=== PATIENT | female | born 1955 | race Caucasian/White ===

== ENCOUNTER 2022-05-01 19:57 | Inpatient (IN) | payer BC ==
[~2022-05-01] VITALS: Ht 162.6 cm; Wt 50.8 kg
--- NOTE | 2022-05-01 20:26 | NUR ---
No beds available in the ER. [facility].
[2022-05-01 20:31] LABS: HEMATOCRIT 38.6 % (31.2-41.9); MEAN CORPUSCULAR HEMOGLOBIN 28.7 uug (24.7-32.8); PLATELET COUNT (AUTO) 221 K/uL (179-408)
--- NOTE | 2022-05-01 20:37 | NUR ---
Patient out of unit for x ray.
[2022-05-01] MEDS ORDERED: METO50TA16 PO (20:40)
[2022-05-01] MEDS ORDERED: EZET10TA15 PO (20:40)
[2022-05-01] MEDS ORDERED: ROSU5TAB PO (20:40)
[2022-05-01 20:44] LABS: CARBON DIOXIDE 26 mmol/L (21-32); CHLORIDE 103 mmol/L (98-107); CREATININE 0.7 mg/dL (0.6-1.3); GLUCOSE 139 mg/dL (74-106); POTASSIUM 3.7 mmol/L (3.5-5.1); UREA NITROGEN, BLOOD 14 mg/dL (7-18)
[2022-05-01 20:53] LABS: ALANINE AMINOTRANSFERASE 44 U/L (14-59); ALKALINE PHOSPHATASE 68 U/L (50-136); ASPARTATE AMINOTRANSFERASE 29 U/L (15-37); BILIRUBIN,DIRECT 0.1 mg/dL (0.0-0.2); BILIRUBIN,TOTAL 0.4 mg/dL (0.2-1.0); TOTAL PROTEIN, SERUM 7.5 g/dL (6.4-8.2)
[2022-05-01] MEDS ORDERED: MORPHINE SULFATE 4 MG/1 ML DISP.SYRIN ONE (21:57)
[2022-05-01] MEDS ORDERED: MORPHINE SULFATE 4 MG/1 ML DISP.SYRIN IV ONE (22:00)
--- NOTE | 2022-05-01 22:10 | NUR ---
Paged Dr Valdovinos for ortho consult. Waiting for call back.
--- NOTE | 2022-05-02 00:52 | NUR ---
[facility] called for panel call. Dr. Yap credit relationship manager .
[2022-05-02] MEDS ORDERED: MORPHINE SULFATE 4 MG/1 ML DISP.SYRIN ONE (00:56)
[2022-05-02] MEDS ORDERED: MORPHINE SULFATE 4 MG/1 ML DISP.SYRIN IV ONE (01:00)
[2022-05-02] MEDS ORDERED: ONDANSETRON 4 MG/2 ML VIAL IV PRN (01:00)
[2022-05-02] MEDS ORDERED: KETAMINE HCL 500 MG/10 ML INJ IV ONE (01:00)
[2022-05-02] MEDS ORDERED: hydrALAZINE HCL 20 MG/1 ML VIAL IV PRN (01:00)
[2022-05-02] MEDS ORDERED: PROPOFOL 1,000 MG/100 ML BOTTLE IV ONE (01:15)
[2022-05-02] MEDS ORDERED: PROPOFOL 200 MG/20 ML BOTTLE ONE (01:29)
--- NOTE | 2022-05-02 01:30 | NUR ---
DR DO SPOKE WITH DR HODGE FOR CONSULT.
--- NOTE | 2022-05-02 02:39 | NUR ---
PATIENT AWAKE, A/OX3 WITH NO DISTRESS NOTED.
[2022-05-02] MEDS ORDERED: KETOROLAC TROMETHAMINE 30 MG INJ IVP ONE (03:00)
[2022-05-02] MEDS ORDERED: KETOROLAC TROMETHAMINE 30 MG INJ ONE (03:51)
--- NOTE | 2022-05-02 04:00 | NUR ---
Report given to Alix JOHNSON.
[2022-05-02 04:15] VITALS: BP 120/61
--- NOTE | 2022-05-02 04:25 | NUR ---
Pt. admitted to Med Surg rm 321, under care of Dr. Soria. Belongs List completed Alix JOHNSON aware of patient's arrival to unit.
[2022-05-02] MEDS: MORPHINE SULFATE 2 MG/1 ML DISP.SYRIN IV PRN ×2 (06:08→11:39)
--- NOTE | 2022-05-02 08:17 | NUR ---
SHIFT NOTE; RECEIVED REPORT FROM FLAVIO IN THE ER. PT WAS WALING ON SLIPPERY FLOOR AND LOST HER BALANCE GET UP HAS A RT HIP AND FELL ON RT HIP PT UNABLE TO GET UP AFTER THE FALL HAS RT THIGH DEFORMITY PT DENIED HITTING HER HEAD AND NO SOB WAS NOTED. PAIN MEDICATION TORADOL AND MORPHINE GIVEN FOR PAIN. PT GIVEN 2MG OF MORPHINE AT 0610 AM FOR HIP PAIN. AND WAS ABLE TO COMPLETE THE ADMISSION AFTER BEING INTERRUPTED BY LAB. WILL ENDORSE TO NEXT SHIFT NURSE WILL CONTINUE TO MONITOR FOR SAFETY.
[2022-05-02] MEDS ORDERED: METOPROLOL TARTRATE 50 MG TABLET PO SCH (09:00)
[2022-05-02] MEDS ORDERED: Medication Not On Formulary EA (Rosuvastatin Calcium (Crestor) 5 MG) PO SCH (09:00)
[2022-05-02] MEDS: EZETIMIBE 10 MG TABLET PO SCH (09:14)
[2022-05-02] MEDS: METOPROLOL TARTRATE 50 MG TABLET PO SCH (09:55)
[2022-05-02 09:56] VITALS: BP 133/65
[2022-05-02 11:08] VITALS: BP 110/52
--- NOTE | 2022-05-02 12:00 | NUR ---
Pt is a/o x 4, complains of pain in the right hip. Plan is for pt to have IM nailing of right hip upon cardiac clearance. Consent signed and placed in chart. Will continue to monitor.
[2022-05-02] MEDS ORDERED: BUPIVACAINE PF 0.5% 30 ML VIAL ONE (13:04)
[2022-05-02] MEDS ORDERED: VANCOMYCIN 1000 MG VIAL ONE (13:04)
[2022-05-02] MEDS ORDERED: EPHEDRINE SULFATE 50 MG/ML AMPUL IM ONE (13:27)
[2022-05-02] MEDS ORDERED: LIDOCAINE-MPF 2% 5 ML VIAL IJ ONE (13:27)
[2022-05-02] MEDS ORDERED: CEFAZOLIN 1 G VIAL IM ONE (13:27)
[2022-05-02] MEDS ORDERED: ONDANSETRON 4 MG/2 ML VIAL IV ONE (13:27)
[2022-05-02] MEDS ORDERED: DEXAMETHASONE SOD PHOSPHATE 4 MG INJ IV ONE (13:27)
[2022-05-02] MEDS ORDERED: PROPOFOL 200 MG/20 ML BOTTLE IV ONE (13:27)
[2022-05-02] MEDS ORDERED: SEVOFLURANE 250 ML BOTTLE IH ONE (13:27)
[2022-05-02] MEDS ORDERED: KETOROLAC TROMETHAMINE 30 MG INJ IM ONE (13:27)
--- NOTE | 2022-05-02 14:00 | NUR ---
Pt is cleared for surgery, consent in chart, Iv intact and patent. Pt is getting IM nailing of right hip by Dr. Valdovinos for 1500, OR nurse took pt down at 1400. Pt is NPO status, refused schuler cath insertion at this time, preferred to get in inserted while under anesthesia. Notified OR nurse.
[2022-05-02] MEDS ORDERED: HYDROMORPHONE 2 MG/1 ML DISP.SYRIN ONE (14:32)
--- NOTE | 2022-05-02 17:08 | NUR ---
Pt returned from OR. Pt vitals 97.8 temp, BP 125/62, HR 69, 100% on 2L NC. Pt was given ancef 1st dose in OR, PRN morphine and norco per MD order, regular diet orered, will place on D5 1/2 NS +20meqs KCL when available on unit. No pain medications given by OR, mp complaint of pain at this time. Pt is awake alert and oriented x 4, at bedside. will continue to monitor.
[2022-05-02] MEDS ORDERED: POTASSIUM CHLORIDE 20 MEQ in IV D5 1/2 NS 1000 ML 1,000 ML IV PRN (18:00)
[2022-05-02 20:44] VITALS: BP 100/49
[2022-05-02] MEDS: ATORVASTATIN 10 MG TABLET PO SCH (21:05)
[2022-05-02] MEDS: CEFAZOLIN 1 G in IV DEXTROSE 5% 50 ML IV SCH (23:03)
[2022-05-03 04:45] VITALS: BP 101/52
[2022-05-03] MEDS: CEFAZOLIN 1 G in IV DEXTROSE 5% 50 ML IV SCH (05:54)
[2022-05-03 07:31] LABS: MEAN CORPUSCULAR HEMOGLOBIN 29.2 uug (24.7-32.8); MEAN CORPUSCULAR VOLUME 87.5 fL (75.5-95.3); PLATELET COUNT (AUTO) 202 K/uL (179-408)
[2022-05-03 07:42] LABS: BILIRUBIN,TOTAL 0.6 mg/dL (0.2-1.0); CREATININE 0.7 mg/dL (0.6-1.3); PHOSPHOROUS 2.9 mg/dL (2.5-4.9); POTASSIUM 4.5 mmol/L (3.5-5.1); TOTAL PROTEIN, SERUM 5.9 g/dL (6.4-8.2)
[2022-05-03] MEDS: EZETIMIBE 10 MG TABLET PO SCH (08:07)
[2022-05-03] MEDS: METOPROLOL TARTRATE 50 MG TABLET PO SCH (08:07)
[2022-05-03] MEDS ORDERED: HEPARIN SODIUM,PORCINE 5,000 UNITS/ML VIAL SQ SCH (09:00)
[2022-05-03] MEDS: MORPHINE SULFATE 4 MG/1 ML DISP.SYRIN IV PRN (09:05)
[2022-05-03 15:48] VITALS: BP 103/52
[2022-05-03 15:59] LABS: HEMATOCRIT 28.5 % (31.2-41.9)
[2022-05-03 20:00] VITALS: BP_SYST 130; BP_SYST 138; BP_DIAS 63; BP_DIAS 64
[2022-05-03] MEDS: ATORVASTATIN 10 MG TABLET PO SCH (20:26)
[2022-05-03] MEDS: ACETAMINOPHEN 325 MG TABLET PO PRN (21:25)
[2022-05-04 07:05] LABS: HEMATOCRIT 28.6 % (31.2-41.9); MEAN CORPUSCULAR HEMOGLOBIN 28.8 uug (24.7-32.8); MEAN CORPUSCULAR VOLUME 86.4 fL (75.5-95.3); PLATELET COUNT (AUTO) 165 K/uL (179-408)
[2022-05-04 07:26] LABS: CREATININE 0.6 mg/dL (0.6-1.3); MAGNESIUM 2.1 mg/dL (1.8-2.4); POTASSIUM 3.9 mmol/L (3.5-5.1)
[2022-05-04] MEDS: METOPROLOL TARTRATE 50 MG TABLET PO SCH (08:29)
[2022-05-04] MEDS: EZETIMIBE 10 MG TABLET PO SCH (08:29)
[2022-05-04] MEDS: MORPHINE SULFATE 4 MG/1 ML DISP.SYRIN IV PRN (08:50)
[2022-05-04] MEDS: ENOXAPARIN SODIUM 40 MG/0.4 ML DISP.SYRIN SQ SCH (10:44)
[2022-05-04 12:10] VITALS: BP 96/34
[2022-05-04 16:14] VITALS: BP 101/53
[2022-05-04] MEDS: ACETAMINOPHEN 325 MG TABLET PO PRN (17:40)
[2022-05-04 20:00] VITALS: BP 96/49
[2022-05-04] MEDS: ATORVASTATIN 10 MG TABLET PO SCH (21:06)
[2022-05-05 04:00] VITALS: BP 122/56
[2022-05-05 06:35] LABS: HEMATOCRIT 27.3 % (31.2-41.9); MEAN CORPUSCULAR HEMOGLOBIN 29.4 uug (24.7-32.8); MEAN CORPUSCULAR VOLUME 86.2 fL (75.5-95.3); PLATELET COUNT (AUTO) 193 K/uL (179-408)
[2022-05-05 07:00] LABS: CREATININE 0.6 mg/dL (0.6-1.3); PHOSPHOROUS 3.1 mg/dL (2.5-4.9); POTASSIUM 3.7 mmol/L (3.5-5.1)
[2022-05-05] MEDS: EZETIMIBE 10 MG TABLET PO SCH (08:19)
[2022-05-05] MEDS: ENOXAPARIN SODIUM 40 MG/0.4 ML DISP.SYRIN SQ SCH (08:19)
[2022-05-05] MEDS: METOPROLOL TARTRATE 50 MG TABLET PO SCH (08:19)
[2022-05-05] MEDS: MORPHINE SULFATE 4 MG/1 ML DISP.SYRIN IV PRN ×2 (08:53→22:49)
--- NOTE | 2022-05-05 09:16 | NUR ---
dc folly catheter per md orders
[2022-05-05 11:37] VITALS: BP 109/55
[2022-05-05] MEDS: GLUCERNA SHAKE 237 ML CAN PO SCH (13:29)
[2022-05-05 16:00] VITALS: BP 111/56
--- NOTE | 2022-05-05 19:40 | NUR ---
Received patient in bed alert oriented, no sob no chest pain no complain of pain at this time, turn and reposition, uses bed moore for bowel and bladder eliminations, cont to monitor.
[2022-05-05 20:00] VITALS: BP 108/49
[2022-05-05] MEDS: ATORVASTATIN 10 MG TABLET PO SCH ×2 (21:00→21:16)
--- NOTE | 2022-05-05 21:41 | NUR ---
complain of constipation, Dr. Bruce Graham with order.
[2022-05-05] MEDS ORDERED: MAGNESIUM HYDROXIDE 30 ML LIQUID UDC PO PRN (21:45)
--- NOTE | 2022-05-06 03:31 | NUR ---
patient able to urinate without difficulty, uses bed moore for eliminations, cont to monitor.
[2022-05-06 04:16] VITALS: BP 121/52
[2022-05-06 06:12] LABS: HEMATOCRIT 27.6 % (31.2-41.9); MEAN CORPUSCULAR HEMOGLOBIN 28.9 uug (24.7-32.8); MEAN CORPUSCULAR VOLUME 85.9 fL (75.5-95.3); PLATELET COUNT (AUTO) 221 K/uL (179-408)
[2022-05-06 06:39] LABS: CREATININE 0.6 mg/dL (0.6-1.3); MAGNESIUM 2.5 mg/dL (1.8-2.4); PHOSPHOROUS 3.7 mg/dL (2.5-4.9); POTASSIUM 3.9 mmol/L (3.5-5.1)
[2022-05-06 08:26] VITALS: BP 121/52
[2022-05-06] MEDS: EZETIMIBE 10 MG TABLET PO SCH (08:26)
[2022-05-06] MEDS: METOPROLOL TARTRATE 50 MG TABLET PO SCH (08:26)
[2022-05-06] MEDS: GLUCERNA SHAKE 237 ML CAN PO SCH (08:26)
[2022-05-06] MEDS: ENOXAPARIN SODIUM 40 MG/0.4 ML DISP.SYRIN SQ SCH (08:27)
[2022-05-06] MEDS ORDERED: HYDROCODONE/APAP 10-325 MG TABLET PO PRN (09:30)
--- NOTE | 2022-05-06 12:34 | NUR ---
dc orders received noted and carried out.dc heplock per md orders dc instruction given to the pt pt left the facility via ambulances in stable condition
== END 2022-05-06 12:35 | DRG 482 ==
LOC: ER 19:57 → MEDSURG3 05-02 01:00
PROVIDERS: ADMIT Nurse Practitioner Family; ATTEND Nurse Practitioner Acute Care
PROC: 0QS8XZZ Reposition Right Femoral Shaft, External Approach (ICD-10-PCS; principal; 2022-05-02)
PROC: 0QS806Z Reposition Right Femoral Shaft with Intramedullary Internal Fixation Device, Open Approach (ICD-10-PCS; 2022-05-02)
DX: S72.301A Unspecified fracture of shaft of right femur, initial encounter for closed fracture (principal); E78.5 Hyperlipidemia, unspecified; D63.8 Anemia in other chronic diseases classified elsewhere; I10 Essential (primary) hypertension; R73.9 Hyperglycemia, unspecified; W01.0XXA Fall on same level from slipping, tripping and stumbling without subsequent striking against object, initial encounter; Y93.9 Activity, unspecified; Y92.009 Unspecified place in unspecified non-institutional (private) residence as the place of occurrence of the external cause; Z20.822 Contact with and (suspected) exposure to COVID-19; Z90.710 Acquired absence of both cervix and uterus
CPT/HCPCS: 36415; 71045; 73502; 73503; 73551; 83735; 84100; 84484; 85018; 85025; 85730; 86850; 86900; 86901; 93005; 97161; A4649; A4663; A6209; C1713; G0378; G0500; J0690; J1100; J1170; J1650; J1885; J2270; J2405; J3370; J3480; J3490